=== PATIENT | male | born 2000 | race Hispanic/Latino ===

== ENCOUNTER 2024-08-11 09:10 | Day surgery (SDC) | payer OTHER ==
[~2024-08-11] VITALS: Ht 165.1 cm; Wt 81.6 kg
[~2024-08-11 09:10] MED LIST: GLYCOPYRROLATE INJ 0.2 MG/ML 2 ML VIAL As Ordered ONE; LIDOCAINE 2% 100MG/5ML SDV (FOR ANES.) As Ordered ONE; ONDANSETRON 4MG 2ML VIAL As Ordered ONE; ROCURONIUM BROMIDE 50MG/5ML VIAL As Ordered ONE; propofoL 200 MG/20 ML VIAL As Ordered ONE
[2024-08-11] MEDS ORDERED: KETOROLAC 60MG 2ML VIAL As Ordered ONE (09:11)
[2024-08-11] MEDS ORDERED: SUGAMMADEX SODIUM 500 MG/5 ML VIAL (BRIDION) As Ordered ONE (09:12)
[2024-08-11] MEDS ORDERED: NS (Normal Saline) 0.9% 1,000 ML IV SCH ×2 (09:55→14:40)
[2024-08-11] MEDS: fentaNYL 100 MCG/2 ML INJECTION IV PRN (10:39)
[2024-08-11] MEDS: MIDAZOLAM INJ 2MG/2ML VIAL IV PRN (10:39)
[2024-08-11] MEDS: dexAMETHasone 10MG/1ML VIAL PRES.FREE PN ONE (10:41)
[2024-08-11] MEDS: TRANEXAMIC ACID 100 MG/ML 10ML VIAL IV ONE (12:05)
[2024-08-11] MEDS: TRANEXAMIC ACID 100 MG/ML 10ML VIAL As Ordered ONE (12:05)
[2024-08-11] MEDS: ceFAZolin SOD 2 GM in IV 1 EA IV ONE (12:05)
[2024-08-11] MEDS: EPINEPHrine INJ 1 MG/ML 1ML AMP As Ordered ONE (12:38)
[2024-08-11] MEDS: VANCOMYCIN 1000MG/20ML VIAL As Ordered ONE (14:32)
[2024-08-11] MEDS ORDERED: ONDANSETRON 4MG 2ML VIAL IV PRN (14:40)
[2024-08-11] MEDS ORDERED: fentaNYL 100 MCG/2 ML INJECTION IV PRN (14:40)
[2024-08-11] MEDS ORDERED: oxyCODONE 5MG TAB PO PRN (14:40)
[2024-08-11] MEDS ORDERED: HYDROMORPHONE HCL 0.5 MG/ 0.5 ML SYRINGE IV PRN (14:40)
[2024-08-11 15:57] VITALS: BP 145/83; TEMP 97.4; O2SAT 97
== END 2024-08-11 16:52 | disposition home or self-care (01) ==
LOC: M SDC 09:10
PROVIDERS: ATTEND Orthopaedic Surgery
DX: S46.012A Strain of muscle(s) and tendon(s) of the rotator cuff of left shoulder, initial encounter (principal); Y93.B9 Activity, other involving muscle strengthening exercises; Y92.139 Unspecified place military base as the place of occurrence of the external cause; Y99.1 Military activity
CPT/HCPCS: 23412; 64415; C1713; J0171; J0665; J0690; J1100; J1596; J1885; J2250; J2405; J3010; J3370